=== PATIENT | female | born 1980 | race Caucasian/White ===

== ENCOUNTER 2017-09-20 10:51 | Emergency (ER) | payer BC ==
--- NOTE | 2017-09-20 11:18 | ED ---
General Adult HPI - General Chief complaint: Chest Pain Stated complaint: diff breathing, chest pain Time Seen by Provider: 09/20/17 11:00 Source: patient, RN notes reviewed Mode of arrival: wheelchair Limitations: no limitations - History of Present Illness Initial comments: This is a 36-year-old female who presents emergency Department complaining of a cough and chest pain with coughing or deep breathing. Patient states she's had 103 fever the last 2 nights at home. Patient denies any chest pain if she is not taking deep breath or if she is not coughing. Patient denies any recent trip or travel. Patient denies any calf pain patient denies any leg swelling. Patient states she has not coughed up any sputum but she does cough constantly. Patient denies any abdominal pain patient denies nausea vomiting diarrhea. Patient denies headache patient denies numbness weakness. - Related Data Previous Rx's Medication Instructions Recorded Azithromycin [Zithromax Tri-Reji] 500 mg PO DAILY #3 tab 09/20/17 Allergies Allergy/AdvReac Type Severity Reaction Status Date / Time Sulfa (Sulfonamide Allergy Unknown Verified 09/20/17 10:58 Antibiotics) Childhood Review of Systems ROS Statement: Those systems with pertinent positive or pertinent negative responses have been documented in the HPI. ROS Other: All systems not noted in ROS Statement are negative. Past Medical History Past Medical History: Asthma Additional Past Medical History / Comment(s): seasonal allergies History of Any Multi-Drug Resistant Organisms: None Reported Additional Past Surgical History / Comment(s): breast implants Past Psychological History: No Psychological Hx Reported Smoking Status: Never smoker Past Alcohol Use History: Occasional Past Drug Use History: None Reported General Exam - General Exam Comments Initial Comments: GENERAL: Patient is well-developed and well-nourished. Patient is nontoxic and well- hydrated and is in mild distress. ENT: Neck is soft and supple. No significant lymphadenopathy is noted. Oropharynx is clear. Moist mucous membranes. Neck has full range of motion without eliciting any pain. EYES: The sclera were anicteric and conjunctiva were pink and moist. Extraocular movements were intact and pupils were equal round and reactive to light. Eyelids were unremarkable. PULMONARY: Unlabored respirations. Good breath sounds bilaterally. No audible rales rhonchi or wheezing was noted. CARDIOVASCULAR: Patient is tachycardic at 120 beats a minute ABDOMEN: Soft and nontender with normal bowel sounds. No palpable organomegaly was noted. There is no palpable pulsatile mass. SKIN: Skin is clear with no lesions or rashes and otherwise unremarkable. NEUROLOGIC: Patient is alert and oriented x3. Cranial nerves II through XII are grossly intact. Motor and sensory are also intact. Normal speech, volume and content. Symmetrical smile. MUSCULOSKELETAL: Normal extremities with adequate strength and full range of motion. No lower extremity swelling or edema. No calf tenderness. LYMPHATICS: No significant lymphadenopathy is noted PSYCHIATRIC: Normal psychiatric evaluation. Normal interpersonal interactions appears functionally intact in deals appropriately with others. No signs of depression. No signs of anxiety. Limitations: no limitations Course Vital Signs 09/20/17 09/20/17 09/20/17 10:55 11:23 12:00 Temperature 100.1 F H 100.4 F H 99.2 F Pulse Rate 120 H 89 Respiratory 22 16 Rate Blood Pressure 126/81 102/56 O2 Sat by Pulse 98 99 Oximetry Medical Decision Making - Medical Decision Making EKG shows sinus tachycardia at 114 bpm OR interval is 1:30 QRS is 74 Q-T intervals 336 QTC is 463. Patient's EKG shows no ST segment elevation but does have some T-wave inversions in the inferior leads 3 and aVF. Patient elevated d-dimer so I CAT scan her chest showed a left lower lobe pneumonia. I gave the patient 2 g Rocephin. Patient was feeling considerably better in the emergency department. - Lab Data Result diagrams: 09/20/17 11:11 09/20/17 11:11 Lab Results 09/20/17 09/20/17 09/20/17 Range/Units 11:11 11:11 11:11 WBC 9.1 (3.8-10.6) k/uL RBC 4.62 (3.80-5.40) m/uL Hgb 13.3 (11.4-16.0) gm/dL Hct 39.3 (34.0-46.0) % MCV 84.9 (80.0-100.0) fL MCH 28.8 (25.0-35.0) pg MCHC 33.9 (31.0-37.0) g/dL RDW 12.2 (11.5-15.5) % Plt Count 192 (150-450) k/uL Neutrophils % 87 % Lymphocytes % 7 % Monocytes % 5 % Eosinophils % 0 % Basophils % 0 % Neutrophils # 7.9 H (1.3-7.7) k/uL Lymphocytes # 0.6 L (1.0-4.8) k/uL Monocytes # 0.4 (0-1.0) k/uL Eosinophils # 0.0 (0-0.7) k/uL Basophils # 0.0 (0-0.2) k/uL PT (9.0-12.0) sec INR (<1.2) APTT (22.0-30.0) sec D-Dimer (<0.60) mg/L FEU Sodium 138 (137-145) mmol/L Potassium 4.3 (3.5-5.1) mmol/L Chloride 106 (98-107) mmol/L Carbon Dioxide 22 (22-30) mmol/L Anion Gap 10 mmol/L BUN 8 (7-17) mg/dL Creatinine 0.68 (0.52-1.04) mg/dL Est GFR (CKD-EPI)AfAm >90 (>60 ml/min/1.73 sqM) Est GFR (CKD-EPI)NonAf >90 (>60 ml/min/1.73 sqM) Glucose 99 (74-99) mg/dL Calcium 8.9 (8.4-10.2) mg/dL Total Bilirubin 0.3 (0.2-1.3) mg/dL AST 21 (14-36) U/L ALT 25 (9-52) U/L Alkaline Phosphatase 46 (38-126) U/L Total Creatine Kinase 37 (30-135) U/L CK-MB (CK-2) 0.3 (0.0-2.4) ng/mL CK-MB (CK-2) Rel Index 0.8 Troponin I <0.012 (0.000-0.034) ng/mL Total Protein 6.3 (6.3-8.2) g/dL Albumin 3.9 (3.5-5.0) g/dL 09/20/17 Range/Units 11:11 WBC (3.8-10.6) k/uL RBC (3.80-5.40) m/uL Hgb (11.4-16.0) gm/dL Hct (34.0-46.0) % MCV (80.0-100.0) fL MCH (25.0-35.0) pg MCHC (31.0-37.0) g/dL RDW (11.5-15.5) % Plt Count (150-450) k/uL Neutrophils % % Lymphocytes % % Monocytes % % Eosinophils % % Basophils % % Neutrophils # (1.3-7.7) k/uL Lymphocytes # (1.0-4.8) k/uL Monocytes # (0-1.0) k/uL Eosinophils # (0-0.7) k/uL Basophils # (0-0.2) k/uL PT 9.4 (9.0-12.0) sec INR 0.9 (<1.2) APTT 24.8 (22.0-30.0) sec D-Dimer 0.97 H (<0.60) mg/L FEU Sodium (137-145) mmol/L Potassium (3.5-5.1) mmol/L Chloride (98-107) mmol/L Carbon Dioxide (22-30) mmol/L Anion Gap mmol/L BUN (7-17) mg/dL Creatinine (0.52-1.04) mg/dL Est GFR (CKD-EPI)AfAm (>60 ml/min/1.73 sqM) Est GFR (CKD-EPI)NonAf (>60 ml/min/1.73 sqM) Glucose (74-99) mg/dL Calcium (8.4-10.2) mg/dL Total Bilirubin (0.2-1.3) mg/dL AST (14-36) U/L ALT (9-52) U/L Alkaline Phosphatase (38-126) U/L Total Creatine Kinase (30-135) U/L CK-MB (CK-2) (0.0-2.4) ng/mL CK-MB (CK-2) Rel Index Troponin I (0.000-0.034) ng/mL Total Protein (6.3-8.2) g/dL Albumin (3.5-5.0) g/dL Disposition Clinical Impression: Pneumonia Disposition: HOME SELF-CARE Condition: Good Instructions: Pneumonia (ED) Prescriptions: Azithromycin [Zithromax Tri-Reji] 500 mg PO DAILY #3 tab Is patient prescribed a controlled substance at d/c from ED?: No Referrals: None,Stated [Primary Care Provider] - 1-2 days
[2017-09-20] MEDS ORDERED: IBUPROFEN 600 MG TAB PO STA (11:23)
[2017-09-20] MEDS ORDERED: SODIUM CHLORIDE 0.9% 500 ML IV STA (11:23)
--- NOTE | 2017-09-20 11:41 | XR ---
EXAMINATION TYPE: XR chest 2V DATE OF EXAM: 09/20/2017 HISTORY: difficulty breathing. REFERENCE: NONE. FINDINGS: There is some increased opacity in the left CP angle. I could not exclude some atelectasis or early infiltrate. The right lung is clear. Pleural space are clear. The heart is not enlarged. IMPRESSION: LEFT BASILAR AIRSPACE DISEASE, EITHER REPRESENTING ATELECTASIS OR EARLY PNEUMONIA.
[2017-09-20 11:45] LABS: Basophils % (A) 0 %; Eosinophils % (A) 0 %; HCT 39.3 % (34.0-46.0); HGB 13.3 gm/dL (11.4-16.0); Lymphocytes # (A) 0.6 k/uL (1.0-4.8); Lymphocytes % (A) 7 %; MCH 28.8 pg (25.0-35.0); MCHC 33.9 g/dL (31.0-37.0); MCV 84.9 fL (80.0-100.0); Mean Platelet Volume 7.3; Monocytes # (A) 0.4 k/uL (0-1.0); Monocytes % (A) 5 %; Neutrophils # (A) 7.9 k/uL (1.3-7.7); Neutrophils % (A) 87 %; Platelet Count 192 k/uL (150-450); RBC 4.62 m/uL (3.80-5.40); RDW 12.2 % (11.5-15.5); WBC 9.1 k/uL (3.8-10.6)
[2017-09-20 11:47] LABS: ALT 25 U/L (9-52); AST 21 U/L (14-36); Albumin 3.9 g/dL (3.5-5.0); Alkaline Phosphatase 46 U/L (38-126); Anion Gap 10 mmol/L; Blood Urea Nitrogen 8 mg/dL (7-17); Calcium 8.9 mg/dL (8.4-10.2); Carbon Dioxide 22 mmol/L (22-30); Chloride 106 mmol/L (98-107); Glucose 99 mg/dL (74-99); Potassium 4.3 mmol/L (3.5-5.1); Sodium 138 mmol/L (137-145); Total Bilirubin 0.3 mg/dL (0.2-1.3); Total Protein 6.3 g/dL (6.3-8.2)
[2017-09-20 11:57] LABS: Creatine Kinase 37 U/L (30-135); INR 0.9 (<1.2); Partial Thromboplastin Time 24.8 sec (22.0-30.0); Prothrombin Time 9.4 sec (9.0-12.0)
[2017-09-20 12:02] LABS: D-Dimer 0.97 mg/L FEU (<0.60)
[2017-09-20 12:10] LABS: Creatine Kinase MB 0.3 ng/mL (0.0-2.4); Troponin I <0.012 ng/mL (0.000-0.034)
--- NOTE | 2017-09-20 12:53 | CT ---
EXAMINATION TYPE: CT chest angio for PE DATE OF EXAM: 09/20/2017 COMPARISON: None. HISTORY: SOB, Lt sided chest pain CT DLP: 180.7 mGycm Automated exposure control for dose reduction was used. CONTRAST: CT Chest for pulmonary embolism performed with with IV Contrast, patient injected with 100 mL of Isov ue 370. FINDINGS: There is dependent atelectasis in the dependent portions of the lungs. There is an area of consolidation in the posterior basal segment of the left lower lobe. The remainder the lungs are sandra r. There are bilateral breast implants in place. There is no significant axillary, internal mammary, mediastinal or hilar adenopathy. There is no evidence of pulmonary embolus. The aorta is normal in caliber without evidence of dissection. The heart is upper limits of normal in size. There is no pleural or pericardial fluid. IMPRESSION: 1. THIS EXAMINATION IS NEGATIVE FOR PULMONARY EMBOLUS. 2. LEFT LOWER LOBE PNEUMONIA.
[2017-09-20 12:58] VITALS: RESP 16; TEMP 99.2
[2017-09-20] MEDS ORDERED: cefTRIAXone 2,000 MG in SODIUM CHLORIDE 0.9% 100 ML IVPB STA (13:00)
[2017-09-20] MEDS ORDERED: cefTRIAXone IN SWFI 2,000 MG/20 ML SYRINGE IVP STA (13:02)
[2017-09-20 13:39] VITALS: BP 101/55; PULSE 85
== END 2017-09-20 13:50 | disposition home or self-care (01) ==
LOC: EC 10:51
DX: J18.9 Pneumonia, unspecified organism (principal); Z98.890 Other specified postprocedural states; Z88.2 Allergy status to sulfonamides
CPT/HCPCS: 36415; 93005; 85379; 80053; 82550; 82553; 84484; 85025; 85610; 85730; 87040; 71046; 71275; 99285; 96374; 96361; J0696; Q9967

== ENCOUNTER 2017-09-21 21:12 | Emergency (ER) | payer BC ==
[2017-09-21] MEDS ORDERED: SODIUM CHLORIDE 0.9% 1,000 ML IV STA (21:34)
[2017-09-21] MEDS ORDERED: KETOROLAC 30 MG/ML 1 ML VIAL IVP ONE (21:36)
[2017-09-21] MEDS ORDERED: ACETAMINOPHEN TAB 325 MG TAB PO STA (21:36)
--- NOTE | 2017-09-21 21:55 | ED ---
General Adult HPI - General Chief complaint: Fever Stated complaint: Fever Time Seen by Provider: 09/21/17 21:27 Source: patient Mode of arrival: wheelchair Limitations: no limitations - History of Present Illness Initial comments: Previously healthy 36-year-old female was evaluated in our emergency department yesterday for fever and difficult a breathing. A thorough workup including a CT pulmonary embolus him study revealed a left lower lobe pneumonia. She was treated with IV antibiotics discharged home by mouth azithromycin. Patient returns today with persistent fever and feeling unwell. Patient reports that she has been alternating 600 mg of Motrin and 650 mg of Tylenol every 3 hours, she's been attempting to drink plenty of fluids, she started her oral azithromycin today but she continues to have fevers so she returned to the ER for reevaluation. - Related Data Previous Rx's Medication Instructions Recorded Azithromycin [Zithromax Tri-Reji] 500 mg PO DAILY #3 tab 09/20/17 Allergies Allergy/AdvReac Type Severity Reaction Status Date / Time Sulfa (Sulfonamide Allergy Unknown Verified 09/20/17 10:58 Antibiotics) Childhood Review of Systems ROS Statement: Those systems with pertinent positive or pertinent negative responses have been documented in the HPI. ROS Other: All systems not noted in ROS Statement are negative. Past Medical History Past Medical History: Asthma Additional Past Medical History / Comment(s): seasonal allergies History of Any Multi-Drug Resistant Organisms: None Reported Additional Past Surgical History / Comment(s): breast implants Past Psychological History: No Psychological Hx Reported Smoking Status: Never smoker Past Alcohol Use History: Occasional Past Drug Use History: None Reported General Exam Limitations: no limitations General appearance: alert Head exam: Present: atraumatic, normocephalic Eye exam: Present: normal appearance, PERRL ENT exam: Present: normal exam, mucous membranes dry Neck exam: Present: normal inspection Respiratory exam: Absent: respiratory distress, accessory muscle use, decreased breath sounds, prolonged expiratory Cardiovascular Exam: Present: normal rhythm, tachycardia GI/Abdominal exam: Present: soft. Absent: distended Extremities exam: Present: full ROM. Absent: pedal edema Back exam: Present: normal inspection Neurological exam: Present: alert, oriented X3 Psychiatric exam: Present: normal affect Skin exam: Present: warm, dry Course Vital Signs 09/21/17 09/21/17 09/21/17 21:18 22:40 22:46 Temperature 102.5 F H 98.7 F Pulse Rate 110 H 91 Respiratory 20 18 Rate Blood Pressure 113/69 104/53 O2 Sat by Pulse 97 99 Oximetry Medical Decision Making - Medical Decision Making Patient was seen and evaluated, history is obtained from the patient and review of medical record Patient has pneumonia diagnosed yesterday on computed tomography scan, treated with IV antibiotics and discharged home Or dosing her Tylenol and Motrin and has a persistent fever the unwell On physical exam the patient appears slightly dehydrated and is febrile and tachycardic Labs, IV fluids and medications were ordered Labs reveal improvement in her neutrophilia, no other acute abnormalities Patient was reevaluated after meds and IV fluids, vital signs with improved significantly, heart rate is 91, temperature is now only 98.7. Patient reports feeling much better. Natural course of illness was discussed with patient, appropriate dosing of antipyretics was discussed with the patient. Importance of oral rehydration was discussed with the patient. patient was advised to continue her oral azithromycin, continue Motrin 800 mg and Tylenol 1 g 4 times daily shins pertaining care were answered the best my ability patient was discharged home in stable condition. - Lab Data Result diagrams: 09/21/17 21:45 09/21/17 21:45 Lab Results 09/21/17 09/21/17 Range/Units 21:45 21:45 WBC 7.9 (3.8-10.6) k/uL RBC 4.29 (3.80-5.40) m/uL Hgb 12.2 (11.4-16.0) gm/dL Hct 36.9 (34.0-46.0) % MCV 86.0 (80.0-100.0) fL MCH 28.5 (25.0-35.0) pg MCHC 33.2 (31.0-37.0) g/dL RDW 12.4 (11.5-15.5) % Plt Count 202 (150-450) k/uL Neutrophils % 82 % Lymphocytes % 10 % Monocytes % 5 % Eosinophils % 1 % Basophils % 0 % Neutrophils # 6.6 (1.3-7.7) k/uL Lymphocytes # 0.8 L (1.0-4.8) k/uL Monocytes # 0.4 (0-1.0) k/uL Eosinophils # 0.1 (0-0.7) k/uL Basophils # 0.0 (0-0.2) k/uL Sodium 138 (137-145) mmol/L Potassium 3.8 (3.5-5.1) mmol/L Chloride 107 (98-107) mmol/L Carbon Dioxide 22 (22-30) mmol/L Anion Gap 9 mmol/L BUN 6 L (7-17) mg/dL Creatinine 0.60 (0.52-1.04) mg/dL Est GFR (CKD-EPI)AfAm >90 (>60 ml/min/1.73 sqM) Est GFR (CKD-EPI)NonAf >90 (>60 ml/min/1.73 sqM) Glucose 132 H (74-99) mg/dL Calcium 8.3 L (8.4-10.2) mg/dL Total Bilirubin <0.1 L (0.2-1.3) mg/dL AST 19 (14-36) U/L ALT 21 (9-52) U/L Alkaline Phosphatase 53 (38-126) U/L Total Protein 5.8 L (6.3-8.2) g/dL Albumin 3.4 L (3.5-5.0) g/dL Disposition Clinical Impression: Pneumonia Disposition: HOME SELF-CARE Condition: Good Instructions: Fever in Adults (ED) Is patient prescribed a controlled substance at d/c from ED?: No Referrals: None,Stated [Primary Care Provider] - 1-2 days Time of Disposition: 22:40
[2017-09-21 21:56] LABS: Basophils % (A) 0 %; Eosinophils # (A) 0.1 k/uL (0-0.7); Eosinophils % (A) 1 %; HCT 36.9 % (34.0-46.0); HGB 12.2 gm/dL (11.4-16.0); Lymphocytes # (A) 0.8 k/uL (1.0-4.8); Lymphocytes % (A) 10 %; MCH 28.5 pg (25.0-35.0); MCHC 33.2 g/dL (31.0-37.0); Mean Platelet Volume 7.5; Monocytes # (A) 0.4 k/uL (0-1.0); Monocytes % (A) 5 %; Neutrophils # (A) 6.6 k/uL (1.3-7.7); Neutrophils % (A) 82 %; Platelet Count 202 k/uL (150-450); RBC 4.29 m/uL (3.80-5.40); RDW 12.4 % (11.5-15.5); WBC 7.9 k/uL (3.8-10.6)
[2017-09-21 22:05] LABS: ALT 21 U/L (9-52); AST 19 U/L (14-36); Albumin 3.4 g/dL (3.5-5.0); Alkaline Phosphatase 53 U/L (38-126); Anion Gap 9 mmol/L; Blood Urea Nitrogen 6 mg/dL (7-17); Calcium 8.3 mg/dL (8.4-10.2); Carbon Dioxide 22 mmol/L (22-30); Chloride 107 mmol/L (98-107); Glucose 132 mg/dL (74-99); Potassium 3.8 mmol/L (3.5-5.1); Sodium 138 mmol/L (137-145); Total Bilirubin <0.1 mg/dL (0.2-1.3); Total Protein 5.8 g/dL (6.3-8.2)
[2017-09-21] MEDS ORDERED: ACETAMINOPHEN TAB 500 MG TAB PO STA (22:07)
[2017-09-21 22:40] VITALS: PULSE 91; RESP 18; TEMP 98.7
[2017-09-21 22:47] VITALS: BP 104/53
== END 2017-09-21 22:52 | disposition home or self-care (01) ==
LOC: EC 21:12
DX: J18.9 Pneumonia, unspecified organism (principal); J45.909 Unspecified asthma, uncomplicated; Z88.2 Allergy status to sulfonamides; Z91.09 Other allergy status, other than to drugs and biological substances
CPT/HCPCS: 36415; 80053; 85025; 99284; 96374; 96361; J1885